=== PATIENT | female | born 1940 | race Caucasian/White ===

== ENCOUNTER → 2016-06-22 | Outpatient (CLI) | payer OTHER, MEDICARE ==
[2016-06-22 10:45] LABS: HEMOGLOBIN A1C 6.57 % (4.2-6.0); MEAN BLOOD GLUCOSE (CALC) 132.781 mg/dL
== END ==
LOC: MOB LAB 09:38
DX: E11.9 Type 2 diabetes mellitus without complications (principal); I25.10 Atherosclerotic heart disease of native coronary artery without angina pectoris; E83.42 Hypomagnesemia; E78.5 Hyperlipidemia, unspecified; I10 Essential (primary) hypertension; E03.9 Hypothyroidism, unspecified
CPT/HCPCS: 36415; 83036; 99213; G0463

== ENCOUNTER → 2016-08-24 | Outpatient (CLI) | payer OTHER, MEDICARE ==
[2016-08-24 16:34] LABS: BILIRUBIN,URINE NEGATIVE (NEG); COLOR,URINE YELLOW; GLUCOSE, URINE (UA) NEGATIVE (NEG); NITRATE,URINE POSITIVE (NEG); OCCULT BLOOD,URINE NEGATIVE (NEG); PH,URINE 6.5 (5.0-8.5); PROTEIN,URINE NEGATIVE (NEG); UROBILINOGEN,URINE 0.2 mg/dL (0.2)
[2016-08-24 16:41] LABS: BACTERIA,URINE MODERATE; CLARITY,URINE SLIGHTLY CLOUDY (CLEAR); RBC,URINE 0-1 /hpf; SQUAMOUS EPITHELIAL CELL,UR FEW; URINE SAMPLE TYPE CLEAN CATCH URINE
[2016-08-24 16:59] LABS: BUN/CREATININE RATIO 17.27 (6-20); CALCIUM 9.5 mg/dL (8.7-10.7); MAGNESIUM 1.7 mg/dL (1.6-2.4)
[2016-08-24 18:06] LABS: FREE T4 (FREE THYROXINE) 1.48 ng/dL (0.93-1.71)
== END ==
LOC: MOB LAB 15:43
DX: E11.9 Type 2 diabetes mellitus without complications (principal); E83.42 Hypomagnesemia; E78.5 Hyperlipidemia, unspecified; I10 Essential (primary) hypertension; E03.9 Hypothyroidism, unspecified; E55.9 Vitamin D deficiency, unspecified; I25.10 Atherosclerotic heart disease of native coronary artery without angina pectoris; R82.99 Other abnormal findings in urine
CPT/HCPCS: 36415; 80048; 81001; 82306; 83735; 84439; 84443; 87077; 87088; 87186 ×2; 99213; G0463

== ENCOUNTER → 2016-10-05 | Outpatient (CLI) | payer OTHER, MEDICARE ==
[2016-10-05 11:43] LABS: HEMOGLOBIN A1C 6.57 % (4.2-6.0)
== END ==
LOC: MOB LAB 09:21
DX: E11.9 Type 2 diabetes mellitus without complications (principal)
CPT/HCPCS: 36415; 83036

== ENCOUNTER → 2016-11-17 | Outpatient (CLI) | payer OTHER, MEDICARE | LOC: SLEEP LAB 20:29 | DX: G47.33 Obstructive sleep apnea (adult) (pediatric) (principal); G47.34 Idiopathic sleep related nonobstructive alveolar hypoventilation | CPT/HCPCS: 95811 ==